=== PATIENT | male | born 1995 ===

== ENCOUNTER 2024-01-28 15:05 | Emergency (ER) | payer OTHER ==
[~2024-01-28] VITALS: Ht 170.2 cm; Wt 90.7 kg
[~2024-01-28 15:05] MED LIST: MAGCIT300 PO
[2024-01-28 15:26] VITALS: BP 129/84
[2024-01-28] MEDS ORDERED: Diphth,Pertuss(Acell),Tet Vac 0.5 ML VIAL IM ONE (15:30)
[2024-01-28 16:42] LABS: BASOPHILS ABSOLUTE AUTO 0.04 K/mm3 (0.00-0.23); BASOPHILS PERCENT AUTO 1 % (0-2); EOSINOPHILS ABSOLUTE AUTO 0.19 K/mm3 (0.00-0.68); EOSINOPHILS PERCENT AUTO 2 % (0-6); Hematocrit 36.7 % (37.0-53.0); Hemoglobin 12.2 g/dL (13.5-17.5); IMMATURE GRAN ABSOLUTE AUTO 0.02 K/mm3 (0.00-0.10); IMMATURE GRAN PERCENT AUTO 0 % (0-1); LYMPHOCYTES ABSOLUTE AUTO 1.44 K/mm3 (0.84-5.20); LYMPHOCYTES PERCENT AUTO 17 % (21-46); MONOCYTES ABSOLUTE AUTO 0.56 K/mm3 (0.16-1.47); MONOCYTES PERCENT AUTO 7 % (4-13); Mean Corpuscular HGB 28.2 pg (26.0-34.0); Mean Corpuscular HGB Conc 33.2 g/dL (31.5-36.5); Mean Corpuscular Volume 85 fL (80-100); NEUTROPHILS ABSOLUTE AUTO 6.19 K/mm3 (1.96-9.15); NEUTROPHILS PERCENT AUTO 73 % (41-73); Platelet Count 247 K/mm3 (150-400); RDW Coefficient Variation 13.3 % (11.7-14.2); RDW Standard Deviation 41.8 fL (35.1-46.3); Red Blood Cell Count 4.32 M/mm3 (4.30-5.90); White Blood Cell Count 8.44 K/mm3 (4.00-11.30)
[2024-01-28 17:08] LABS: Albumin/Globulin Ratio 0.9 (0.8-1.8); Bilirubin, Total 0.3 mg/dL (0.1-1.0); Bun/Creatinine Ratio 20.4 (12.0-20.0); Calcium, Blood 8.6 mg/dL (8.5-10.1); Creatinine, Blood 0.64 mg/dL (0.60-1.20); Globulin, Blood 3.2 g/dL (2.2-4.0); Potassium, Blood 3.3 mmol/L (3.5-5.5); Total Protein, Blood 6.2 g/dL (6.4-8.2)
[2024-01-28] MEDS ORDERED: BACTRIM DS TAB1 EAC1 PO (18:34)
[2024-01-28] MEDS ORDERED: CEPH500 PO (18:34)
[2024-01-28] MEDS ORDERED: Cephalexin Monohydrate 500 MG Cap PO ONE (18:35)
[2024-01-28] MEDS ORDERED: Trimethoprim/Sulfamethoxazole DS Tab PO ONE (18:35)
== END 2024-01-28 18:53 | disposition home or self-care (01) ==
LOC: ER 15:05
PROVIDERS: Emergency Medicine
DX: L03.114 Cellulitis of left upper limb (principal)
CPT/HCPCS: 73201; 80053; 85025; 99284-25; A9270; Q9967

== ENCOUNTER 2024-04-06 13:46 | Emergency (ER) | payer OTHER ==
[~2024-04-06] VITALS: Ht 170.2 cm; Wt 90.7 kg
[~2024-04-06 13:46] MED LIST changes: +BACTRIM DS TAB1 EAC1 PO; +CEPH500 PO
[2024-04-06 14:26] VITALS: BP 119/70
[2024-04-07 12:49] LABS: HBV CORE ANTIBODIES,TOTAL Negative (Negative)
[2024-04-07 12:57] LABS: HEPATITIS B SURFACE ANTIBODY 9.67 IU/L
[2024-04-07 14:28] LABS: HEPATITIS B SURFACE ANTIGEN Negative (Negative)
[2024-04-09 11:36] LABS: HIV 1,2 COMBO ANTIGEN/ANTIBODY Negative (Negative)
== END 2024-04-06 16:12 | disposition home or self-care (01) ==
LOC: ER 13:46
PROVIDERS: Physician Assistant
DX: Z11.4 Encounter for screening for human immunodeficiency virus [HIV] (principal); Z11.59 Encounter for screening for other viral diseases; F19.10 Other psychoactive substance abuse, uncomplicated
CPT/HCPCS: 86704; 87340; 87389; 99282